=== PATIENT | female | born 2000 | race Caucasian/White ===

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

== ENCOUNTER 2019-02-08 16:41 | Emergency (ER) | payer OTHER ==
[2019-02-08 17:22] VITALS: BP 95/62
--- NOTE | 2019-02-08 17:51 | UC ---
Back Pain HPI - HPI Summary HPI Summary: 18 y/o female adolescent presents to the urgent care c/o Sudden left sided low back pain after reaching diagonally and picking up her back pack on 02/05/19. Pain is 4/10 and worse w/ certain movements and w/o any radiation. Pt started to take Motrin 400 mg PO today around 1430pm to alleviate symptoms. Pt denies flank pain, urinary symptoms, saddle anesthesia, urinary incontinence, numbness or tingling sensation over the lower extremities, pelvic pain, Hx of STd's, vaginal discharge, abdominal pain, SOB, chest pain, N/V/d. LMP: 01/09/2019. She is expecting her period today. - History of Current Complaint Chief Complaint: UCBackPain Stated Complaint: BACK INJURY Time Seen by Provider: 02/08/19 17:50 Hx Obtained From: Patient Hx Last Menstrual Period: 04/11/2018 Onset/Duration: Sudden Onset, Lasting Days - 5 days, Still Present Timing: Intermittent Severity Initially: Moderate Severity Currently: Moderate Pain Intensity: 4 Pain Scale Used: 0-10 Numeric Back Pain: Is Discrete @ - left side lower bakc pain Character: Sharp Aggravating Factor(s): Movement, Lifting Alleviating Factor(s): Rest Associated Signs And Symptoms: Positive: Negative. Negative: Swelling, Bruising , Weakness, Numbness, Tingling, Abdominal Pain, Flank Pain, Bladder Incontinence , Bowel Incontinence, Pain with Weight Bearing - Risk Factors AAA Risk Factors: Negative TAD Risk Factors: Negative Cauda Equina Risk Factors: Negative Epidural Abscess Risk Factors: Negative - Allergies/Home Medications Allergies/Adverse Reactions: Allergies Allergy/AdvReac Type Severity Reaction Status Date / Time Penicillins Allergy Rash Verified 02/08/19 17:15 PMH/Surg Hx/FS Hx/Imm Hx Previously Healthy: Yes Psychological History: Anxiety, Depression Other Psychological History: ADHD - Surgical History Surgical History: None - Family History Known Family History: Positive: Hypertension - Social History Occupation: Student Lives: With Family Alcohol Use: None Substance Use Type: None Smoking Status (MU): Never Smoked Tobacco - Immunization History Vaccination Up to Date: Yes Review of Systems All Other Systems Reviewed And Are Negative: Yes Constitutional: Positive: Negative Skin: Positive: Negative Eyes: Positive: Negative ENT: Positive: Negative Respiratory: Positive: Negative Cardiovascular: Positive: Negative Gastrointestinal: Positive: Negative Genitourinary: Positive: Negative Motor: Positive: Negative Neurovascular: Positive: Negative Musculoskeletal: Positive: Decreased ROM - left side lower back, Other: - left lower back pain Neurological: Positive: Negative Psychological: Positive: Negative Is Patient Immunocompromised?: No Physical Exam - Summary Physical Exam Summary: Vital Signs Reviewed: Yes Appearance: Well-Appearing, Well-Nourished, Thin female sitting in the examining table w/o any apparent distress. Eyes: Positive: Conjunctiva Clear - PERRLA, EOMI. ENT: Positive: Normal ENT inspection, Hearing grossly normal, Pharynx normal, TMs normal, Uvula midline Neck: Positive: Supple, Nontender, No Lymphadenopathy Respiratory: Positive: Chest non-tender, Lungs clear, Normal breath sounds, No respiratory distress Cardiovascular: Positive: RRR, No Murmur, Pulses Normal, Brisk Capillary Refill Abdomen Description: Positive: Nontender, No Organomegaly, Soft. Negative: CVA Tenderness (R), CVA Tenderness (L) Bowel Sounds: Positive: Present Musculoskeletal: Positive: Strength Intact, BACK: Patient walked into the urgent care room with symmetric ambulation, No signs of limping, antalgic, able to bear weight. No signs of trauma, No masses palpated. Point tenderness and left paraspinal muscle spasm at the level of L3-L5. No CVAT, no flank ecchymosis . No sacroiliac notch tenderness, No saddle anesthesia.ROM: limited due to pain, Straight Leg Raise: negative. Patellar reflexes: brisk, symmetric Muscle strength lower extremities. Dorsiflexion/ plantar flexion of ankles. Heel / toe walk. Lower extremities: Femoral, popliteal, posterior tibial, and dorsalis pedis pulses WNL. Pt refuse rectal exam Neurological: Positive: Alert, Muscle Tone Normal Psychological Exam: Normal Skin Exam: Normal Triage Information Reviewed: Yes Vital Signs: Initial Vital Signs Temp 97.8 F 02/08/19 17:17 Pulse 82 02/08/19 17:17 Resp 16 02/08/19 17:17 BP 95/62 02/08/19 17:17 Pulse Ox 100 02/08/19 17:17 Back Pain Course/Dx - Course Course Of Treatment: 18 y/o female adolescent presents to the urgent care c/o Sudden left sided low back pain after reaching diagonally and picking up her back pack on 02/05/19. Pain is 4/10 and worse w/ certain movements and w/o any radiation. Pt started to take Motrin 400 mg PO today around 1430pm to alleviate symptoms. Pt denies flank pain, urinary symptoms, saddle anesthesia, urinary incontinence, numbness or tingling sensation over the lower extremities, pelvic pain, Hx of STd's, vaginal discharge, abdominal pain, SOB, chest pain, N/V/d. LMP: 01/09/2019. She is expecting her period today. Hx obtained. PE: Point tenderness and left paraspinal muscle spasm at the level of L3-L5 on examination. test ordered: negative. Lumbosacral X-ray ordered, Impression: No acute osseous injury observed. Naproxen PO ordered at the clinic. Given by nurse. Pt tolerated well medication pain decrease. Pt Rx Naproxen PO, flexeril PO and given a PT referral. Patient was instructed to the f/u with orthopedic in 1 week if symptoms do not improve or worsen. Patient understands and agrees. Patient is able to ambulate freely w/o aid or limp. Plan of care was discussed with the patient and patient understands and agrees. All questions were answered at patient satisfaction. Pt left clinic hemodynamically stable. - Differential Dx/Diagnosis Differential Diagnosis/HQI/PQRI: Fracture, Renal Colic, Strain, Sprain, Other - scoliosis Provider Diagnosis: Spasm of back muscles, Strain of mid-back Discharge ED - Sign-Out/Discharge Documenting (check all that apply): Patient Departure - d/C home All imaging exams completed and their final reports reviewed: No Studies - Discharge Plan Condition: Stable Disposition: HOME Prescriptions: Cyclobenzaprine (NF) [Cyclobenzaprine 5 MG (NF)] 5 mg PO BID #14 tab Ibuprofen TAB* [Motrin TAB* 600 MG] 600 mg PO Q8H PRN #30 tab PRN Reason: moderate pain Patient Education Materials: Low Back Strain (ED), Muscle Spasm (ED) Referrals: [facility] [place] [facility] REFERRAL [Outside] - 1 Week [facility] [Provider Group] - 1 Week Additional Instructions: 1- Please take Ibuprofen PO q8hrs as directed after meals for pain. 2- Take Flexeril PO as directed for muscle spasm. Please do not drive while taking the medication. 3- Wear a back support. Avoid strenuous exercise of heavy lifting. 4- Please follow up with Orthopedic Dr from Sports medicine in 1 week if not improvement of symptoms, for further management. - Billing Disposition and Condition Condition: STABLE Disposition: Home
== END 2019-02-08 18:43 | disposition home or self-care (01) ==
LOC: UCCORT 16:41
DX: M62.830 Muscle spasm of back (principal); S29.012A Strain of muscle and tendon of back wall of thorax, initial encounter; X50.1XXA Overexertion from prolonged static or awkward postures, initial encounter; Y92.9 Unspecified place or not applicable; Z88.0 Allergy status to penicillin
CPT/HCPCS: 81003; 84702; 99212; G0463